=== PATIENT | male | born 1990 | race American Indian/Alaskan Native ===

== ENCOUNTER 2019-04-13 03:08 | Emergency (ER) | payer SELFPAY ==
--- NOTE | 2019-04-13 03:35 | XRay Report ---
CHEST 1 VIEW 04/13/2019 3:27 AM INDICATION / CLINICAL INFORMATION: Chest Pain. COMPARISON: None available. FINDINGS: SUPPORT DEVICES: None. HEART / MEDIASTINUM: No significant abnormality. LUNGS / PLEURA: No significant pulmonary or pleural abnormality. No pneumothorax. ADDITIONAL FINDINGS: No significant additional findings. IMPRESSION: 1. No acute abnormality of the chest. Signer Name: Jaxon Lyman MD Signed: 04/13/2019 3:31 AM Workstation Name: [id number]
--- NOTE | 2019-04-13 08:47 | Event Note ---
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
--- NOTE | 2019-04-13 09:10 | Emergency Department Report ---
<QAMAR FLOR - Last Filed: 04/13/19 12:31> ED Chest Pain HPI - General Chief Complaint: Chest Pain Stated Complaint: CHEST PAIN Time Seen by Provider: 04/13/19 08:47 Source: patient Mode of arrival: Ambulatory Limitations: No Limitations - History of Present Illness Initial Comments: This a 28-year-old obese male with no prior medical history presents to ED complaining of left to me sided chest pain that's been intermittent for the past 1 month. Patient describes pain as sharp to dull that is un related to physical activity or strenuous lifting. Patient states that pain does not radiate anywhere else. Patient states that it's localized mostly to his left upper chest region and sometimes felt in need sternal region. Patient denies taking any medications for any medical conditions. Patient denies fevers/chills/ nausea/vomiting/dizziness/lightheadedness/blurred vision/headache MD Complaint: chest pain - Related Data Home Medications Medication Instructions Recorded Confirmed Last Taken No Known Home Medications [No 04/13/19 04/13/19 Unknown Reported Home Medications] Allergies Allergy/AdvReac Type Severity Reaction Status Date / Time No Known Allergies Allergy Verified 04/13/19 03:11 Heart Score - HEART Score History: Slightly suspicious EKG: Non-specific Age: < 45 Risk factors: No known risk factors Troponin: < normal limit HEART Score: 1 ED Review of Systems Comment: All other systems reviewed and negative ED Past Medical Hx - Past Medical History Previous Medical History?: No - Surgical History Past Surgical History?: No - Social History Smoking Status: Current Every Day Smoker Substance Use Type: Marijuana - Medications Home Medications: Home Medications Medication Instructions Recorded Confirmed Last Taken Type No Known Home Medications [No 04/13/19 04/13/19 Unknown History Reported Home Medications] ED Physical Exam - General Limitations: No Limitations General appearance: alert, in no apparent distress - Head Head exam: Present: atraumatic, normocephalic - Eye Eye exam: Present: normal appearance - ENT ENT exam: Present: mucous membranes moist - Neck Neck exam: Present: normal inspection, full ROM. Absent: tenderness - Respiratory Respiratory exam: Present: normal lung sounds bilaterally. Absent: respiratory distress, wheezes, rales, chest wall tenderness - Cardiovascular Cardiovascular Exam: Present: regular rate, normal rhythm. Absent: systolic murmur, diastolic murmur, rubs, gallop - GI/Abdominal GI/Abdominal exam: Present: soft, normal bowel sounds - Rectal Rectal exam: Present: deferred - Extremities Exam Extremities exam: Present: normal inspection - Back Exam Back exam: Present: normal inspection - Neurological Exam Neurological exam: Present: alert, oriented X3 - Psychiatric Psychiatric exam: Present: normal affect, normal mood - Skin Skin exam: Present: warm, dry, intact, normal color. Absent: rash CLIFFORD score - Clifford Score Age > 65: (0) No Aspirin use within the Past 7 Days: (0) No 3 or more CAD Risk Factors: (0) No 2 or more Angina events in past 24 hrs: (0) No Known CAD with more than 50% Stenosis: (0) No Elevated Cardiac Markers: (0) No ST Deviation Greater than 0.5mm: (0) No CLIFFORD Score: 0 ED Medical Decision Making - Lab Data Result diagrams: 04/13/19 09:21 04/13/19 09:21 Laboratory Last Values WBC 6.4 K/mm3 (4.5-11.0) 04/13/19 09:21 RBC 5.38 M/mm3 (3.65-5.03) H 04/13/19 09:21 Hgb 15.6 gm/dl (11.8-15.2) H 04/13/19 09:21 Hct 45.6 % (35.5-45.6) 04/13/19 09:21 MCV 85 fl (84-94) 04/13/19 09:21 MCH 29 pg (28-32) 04/13/19 09:21 MCHC 34 % (32-34) 04/13/19 09:21 RDW 14.3 % (13.2-15.2) 04/13/19 09:21 Plt Count 288 K/mm3 (140-440) 04/13/19 09:21 Lymph % (Auto) 33.5 % (13.4-35.0) 04/13/19 09:21 Sutton % (Auto) 6.7 % (0.0-7.3) 04/13/19 09:21 Eos % (Auto) 1.2 % (0.0-4.3) 04/13/19 09:21 Baso % (Auto) 0.9 % (0.0-1.8) 12/12/19 09:21 Lymph # 2.1 K/mm3 (1.2-5.4) 04/13/19 09:21 Sutton # 0.4 K/mm3 (0.0-0.8) 04/13/19 09:21 Eos # 0.1 K/mm3 (0.0-0.4) 04/13/19 09:21 Baso # 0.1 K/mm3 (0.0-0.1) 04/13/19 09:21 Seg Neutrophils % 57.7 % (40.0-70.0) 04/13/19 09:21 Seg Neutrophils # 3.7 K/mm3 (1.8-7.7) 04/13/19 09:21 Sodium 136 mmol/L (137-145) L 04/13/19 09:21 Potassium 4.2 mmol/L (3.6-5.0) 04/13/19 09:21 Chloride 100.0 mmol/L (98-107) 04/13/19 09:21 Carbon Dioxide 23 mmol/L (22-30) 04/13/19 09:21 Anion Gap 17 mmol/L 04/13/19 09:21 BUN 13 mg/dL (9-20) 04/13/19 09:21 Creatinine 0.9 mg/dL (0.8-1.5) 04/13/19 09:21 Estimated GFR > 60 ml/min 04/13/19 09:21 BUN/Creatinine Ratio 14 % 04/13/19 09:21 Glucose 104 mg/dL (75-100) H 04/13/19 09:21 Calcium 9.3 mg/dL (8.4-10.2) 04/13/19 09:21 Troponin T < 0.010 ng/mL (0.00-0.029) 04/13/19 10:04 NT-Pro-B Natriuret Pep 30.25 pg/mL (0-450) 04/13/19 10:04 - Radiology Data Radiology results: report reviewed, image reviewed CHEST 1 VIEW 04/13/2019 3:27 AM INDICATION / CLINICAL INFORMATION: Chest Pain. COMPARISON: None available. FINDINGS: SUPPORT DEVICES: None. HEART / MEDIASTINUM: No significant abnormality. LUNGS / PLEURA: No significant pulmonary or pleural abnormality. No pneumothorax. ADDITIONAL FINDINGS: No significant additional findings. IMPRESSION: 1. No acute abnormality of the chest. Signer Name: Jaxon Lyman MD Signed: 04/13/2019 3:31 AM Workstation Name: [id number] Transcribed By: [place] Dictated By: Jaxon Lyman MD Electronically Authenticated By: Jaxon Lyman MD Signed Date/Time: 04/13/19 0331 ED Disposition Clinical Impression: Abnormal EKG Chest pain Qualifiers: Chest pain type: unspecified Qualified Code(s): R07.9 - Chest pain, unspecified Disposition: DC- TO HOME OR SELFCARE Condition: Stable Instructions: Chest Pain (ED), Electrocardiogram (GEN) Referrals: [facility] [Outside] - as needed GIULIANO DOHERTY MD [Staff Physician] - 7 Days PRIMARY CARE, [Primary Care Provider] - 2-3 Days <PRABHU STINSON - Last Filed: 04/13/19 17:56> ED Chest Pain HPI - History of Present Illness Initial Comments: DEnies fam hx sudden cardiac , denies hx PE/DVT Onset: during rest Pain Location: substernal Pain Radiation: none Severity: mild Severity scale (0 -10): 2 Quality: aching Consistency: intermittent Improves With: nothing Worsens With: nothing Context: recent travel (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[place]) re: denies: nausea, vomting, diaphoresis, dyspnea, sense of impending doom Other Symptoms: denies: cough, fever, syncope, rash, acid taste in mouth, leg swelling, palpitations, burping ED Review of Systems ROS: Stated complaint: CHEST PAIN Other details as noted in HPI Other: GENERAL: No weight change, fatigue, fever, chills, or night sweats SKIN: No changes in skin or hair, no itching, no rashes, no jaundice HEAD: No trauma EYES: No blurriness, tearing, itching, acute visual loss, conjunctival discoloration, or scleral icterus EARS: No hearing loss, tinnitus, vertigo, or earache NOSE: No rhinorrhea, stuffiness, sneezing, itching, or epistaxis MOUTH: No bleeding gums, hoarseness, sore throat, or swelling CARDIAC: Chest pain. No new murmur, palpitations, dyspnea on exertion, orthopnea, PND, or edema RESPIRATORY: No shortness of breath, wheeze, cough, sputum production, hemoptysis GI: No abdominal pain, nausea, vomiting, dysphagia, diarrhea, constipation, hematemesis, melena, hematochezia URINARY: No frequency, urgency, polyuria, dysuria, hematuria, or incontinence MUSCULOSKELETAL: No muscle weakness, joint stiffness, decrease in range of motion, redness, swelling NEUROLOGIC: No headache, syncope, loss of sensation, numbness, tingling, tremors, weakness, paralysis, seizures HEMATOLOGIC: No anemia, easy bruising, bleeding, petechiae, or purpura ENDOCRINE: No hot or cold intolerance, sweating, polyuria, polydipsia or, polyphagia no thyroid problems PSYCHIATRIC: No change in mood, no anxiety, no depression ED Physical Exam - Other Other exam information: GENERAL: Patient in no acute distress HEAD: Normocephalic, atraumatic EYES: PERRLA, EOM intact, no scleral icterus, no conjunctival hemorrhage, visual tejada and acuity wnl NOSE: No tenderness, discharge, sinus tenderness MOUTH: No erythema, bleeding, exudate HEART: Regular rate and rhythm, no murmur, S1-S2 are auscultated, no edema, pulses are symmetric LUNGS: No respiratory distress. Bilateral breath sounds, No tachypnea, No re tractions, No wheezing, rales, rhonchi ABDOMEN: Normal bowel sounds, abdomen soft, no tenderness, no rebound, no guarding, no distention, no masses, no CVA tenderness MUSCULOSKELETAL: Normal joint range of motion, no redness, no swelling, no tenderness NEUROLOGIC: GCS 15, Alert and Oriented x3, Cranial nerves intact, normal sensation, normal strength, no cerebellar deficit, NIHSS 0 PSYCHIATRIC: No homicidal or suicidal ideation, no anxiety, no depression, no hallucinations SKIN: Skin is warm and dry, no wounds, no rashes ED Course Vital Signs 04/13/19 04/13/19 04/13/19 03:13 07:16 08:00 Temperature 97.6 F 97.6 F Pulse Rate 83 70 70 Respiratory 20 16 16 Rate Blood Pressure 181/118 Blood Pressure 139/77 128/74 [Right] O2 Sat by Pulse 95 98 96 Oximetry 04/13/19 04/13/19 04/13/19 09:39 09:50 12:41 Temperature 97.8 F 97.5 F L Pulse Rate 80 80 68 Respiratory 16 16 Rate Blood Pressure 126/84 Blood Pressure 126/84 142/89 [Right] O2 Sat by Pulse 100 98 Oximetry ED Medical Decision Making - Lab Data Result diagrams: 04/13/19 09:21 04/13/19 09:21 Laboratory Results - last 24 hr 04/13/19 04/13/19 04/13/19 09:21 09:21 10:04 WBC 6.4 RBC 5.38 H Hgb 15.6 H Hct 45.6 MCV 85 MCH 29 MCHC 34 RDW 14.3 Plt Count 288 Lymph % (Auto) 33.5 Sutton % (Auto) 6.7 Eos % (Auto) 1.2 Baso % (Auto) 0.9 Lymph # 2.1 Sutton # 0.4 Eos # 0.1 Baso # 0.1 Seg Neutrophils % 57.7 Seg Neutrophils # 3.7 Sodium 136 L Potassium 4.2 Chloride 100.0 Carbon Dioxide 23 Anion Gap 17 BUN 13 Creatinine 0.9 Estimated GFR > 60 BUN/Creatinine Ratio 14 Glucose 104 H Calcium 9.3 Troponin T < 0.010 < 0.010 NT-Pro-B Natriuret Pep 30.25 - EKG Data When compared to previous EKG there are: no significant change - Radiology Data Radiology results: report reviewed - Medical Decision Making At [address] and cadiologist Dr. Doherty reviewed EKG in the ER and evaluated the patient. Report on the EKG concern for LVH and early repolarization. Recommend no acute intervention. If second troponin negative, patient can be discharged with outpatient follow up. Patient comfortable. Reports symptom improvement. Updated with results. Plan discharge with outpatient follow up. Return if any worsening. Critical care attestation.: If time is entered above; I have spent that time in minutes in the direct care of this critically ill patient, excluding procedure time. ED Disposition Is pt being admited?: No Time of Disposition: 11:54
[2019-04-13] MEDS ORDERED: cloNIDine 0.2 MG TAB PO ONE (09:16)
[2019-04-13 09:38] LABS: Basophils # (Auto) 0.1 K/mm3 (0.0-0.1); Basophils % (Auto) 0.9 % (0.0-1.8); Eosinophils # (Auto) 0.1 K/mm3 (0.0-0.4); Eosinophils % (Auto) 1.2 % (0.0-4.3); Hematocrit 45.6 % (35.5-45.6); Hemoglobin 15.6 gm/dl (11.8-15.2); Lymphocytes # (Auto) 2.1 K/mm3 (1.2-5.4); Lymphocytes % (Auto) 33.5 % (13.4-35.0); Mean Corpuscular HGB Conc 34 % (32-34); Mean Corpuscular Volume 85 fl (84-94); Monocytes # (Auto) 0.4 K/mm3 (0.0-0.8); Monocytes % (Auto) 6.7 % (0.0-7.3); Platelet Count 288 K/mm3 (140-440); Red Blood Count 5.38 M/mm3 (3.65-5.03); Red Cell Distribution Width 14.3 % (13.2-15.2)
[2019-04-13 09:49] LABS: BUN/Creatinine Ratio 14; Blood Urea Nitrogen 13 mg/dL (9-20); Calcium 9.3 mg/dL (8.4-10.2); Hemolysis Index 1
[2019-04-13] MEDS ORDERED: SODIUM CHLORIDE 0.9% 1000 ML 1,000 ML IV ONE (09:54)
[2019-04-13] MEDS ORDERED: ASPIRIN 81 MG TAB CHEW PO ONE (09:54)
--- NOTE | 2019-04-13 11:37 | Cat Scan Report ---
CTA CHEST WITH CONTRAST INDICATION : Left-sided chest pain for one month. TECHNIQUE: Axial imaging performed through the chest, with contrast bolus timing set to maximize opa cification of the pulmonary arteries. Sagittal and coronal reformatted images. 3-plane MIP reformatte d images were obtained. All CT scans at this location are performed using CT dose reduction for ALAR A by means of automated exposure control. 160 mL of intravenous contrast administered. Initial CTA scan with 100 cc contrast bolus was missed. Exam was repeated with 60 cc. COMPARISON: No relevant comparisons FINDINGS: Bolus: Contrast bolus timing is borderline. PTE: No large central pulmonary embolus is identified. The distal pulmonary arteries are poorly opac ified but no suspicion of pulmonary embolus. If further evaluation is needed, nuclear medicine scan c ould be obtained. Mediastinum: Heart and great vessels appear normal. No pathologic mediastinal adenopathy. Lungs: Lungs are clear. Bones: Degenerative changes in the spine with nothing acute. Upper abdomen: Mild hepatic steatosis. IMPRESSION: Negative for PTE. Clear lungs. Signer Name: Mj Brizuela Jr, MD Signed: 04/13/2019 11:33 AM Workstation Name: [id number]
--- NOTE | 2019-04-13 12:36 | Consultation ---
History of Present Illness Consult date: 04/13/19 Requesting physician: PRABHU STINSON Consult reason: chest pain History of present illness: The pt is a 28-year-old male with a past medical history of morbid obesity and tobacco use. He is previously unknown to our practice. 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 He presented with c/o chest pain for the past 1 month. He describes his chest pain as an intermittent, nonexertional, nonradiating stabbing pain located on the left side of his chest. The pain has no clear aggravating or alleviating factors. Pt denies SOB, palpitations, n/v, diaphoresis, dizziness or syncope. On evaluation, he is chest pain free. He also c/o LUE numbness which is not associated with the chest pain. Following arrival, he was found to be hyperten sive with BP 181/118. He denies any prior diagnosis of HTN. He does have DOT physicals annually. He reports a weight gain of 100lbs over the past several years due to sedentary lifestyle and fast food. Past History Past Medical History: No medical history Social history: smoking. denies: alcohol abuse, prescription drug abuse Medications and Allergies Allergies Allergy/AdvReac Type Severity Reaction Status Date / Time No Known Allergies Allergy Verified 04/13/19 03:11 Home Medications Medication Instructions Recorded Confirmed Last Taken Type No Known Home Medications [No 04/13/19 04/13/19 Unknown History Reported Home Medications] Review of Systems Constitutional: no weight loss, no weight gain, no fever, no chills, no sweats Ears, nose, mouth and throat: no ear pain, no nose pain, no sinus pressure, no sinus pain Cardiovascular: chest pain, no orthopnea, no palpitations, no rapid/irregular heart beat, no edema, no syncope, no lightheadedness, no shortness of breath, no dyspnea on exertion, no leg edema Respiratory: no cough, no shortness of breath, no dyspnea on exertion, no congestion, no wheezing, no pain on inspiration Gastrointestinal: no abdominal pain, no nausea, no vomiting, no diarrhea, no constipation, no change in bowel habits Genitourinary Male: no dysuria, no hematuria, no flank pain, no discharge, no urinary frequency, no urinary hesitancy Musculoskeletal: no neck stiffness, no neck pain, no shooting arm pain, no arm numbness/tingling, no low back pain, no shooting leg pain Integumentary: no rash, no pruritis, no redness, no sores, no wounds Neurological: no head injury Psychiatric: no anxiety Endocrine: no cold intolerance, no heat intolerance Hematologic/Lymphatic: no easy bruising, no easy bleeding Allergic/Immunologic: no urticaria, no wheezing Physical Examination Vital Signs Temp Pulse Resp BP Pulse Ox 97.6 F 83 20 181/118 95 04/13/19 03:13 04/13/19 03:13 04/13/19 03:13 04/13/19 03:13 04/13/19 03:13 General appearance: no acute distress HEENT: Positive: PERRL, Normocephaly, Mucus Membranes Moist Neck: Positive: neck supple, trachea midline Cardiac: Positive: Reg Rate and Rhythm, S1/S2 Lungs: Positive: Decreased Breath Sounds Neuro: Positive: Grossly Intact Abdomen: Negative: Tender Skin: Negative: Rash Musculoskeletal: No Pain Extremities: Absent: edema Results 04/13/19 09:21 04/13/19 09:21 CBC 04/13/19 Range/Units 09:21 WBC 6.4 (4.5-11.0) K/mm3 RBC 5.38 H (3.65-5.03) M/mm3 Hgb 15.6 H (11.8-15.2) gm/dl Hct 45.6 (35.5-45.6) % Plt Count 288 (140-440) K/mm3 Lymph # 2.1 (1.2-5.4) K/mm3 Ponce # 0.4 (0.0-0.8) K/mm3 Eos # 0.1 (0.0-0.4) K/mm3 Baso # 0.1 (0.0-0.1) K/mm3 Comprehensive Metabolic Panel 04/13/19 Range/Units 09:21 Sodium 136 L (137-145) mmol/L Potassium 4.2 (3.6-5.0) mmol/L Chloride 100.0 (98-107) mmol/L Carbon Dioxide 23 (22-30) mmol/L BUN 13 (9-20) mg/dL Creatinine 0.9 (0.8-1.5) mg/dL Glucose 104 H (75-100) mg/dL Calcium 9.3 (8.4-10.2) mg/dL - Imaging and Cardiology EKG: report reviewed, image reviewed EKG interpretations - Telemetry EKG Rhythm: Sinus Rhythm - EKG Sinus rhythms and dysrhythmias: sinus rhythm Chamber hypertrophy or enlargement: left ventricular hypertro Assessment and Plan Pt's chest pain appears atypical, suspect secondary to uncontrolled HTN, chest pain currently resolved. Chest CTA negative for PE, NAF. ECG shows NSR, LVH with repolarization abnormalities, no AMI. Maggie negative for AMI x 1 set. Obtain second set of Maggie and if negative, pt may discharge home from cardiology standpoint. Smoking cessation encouraged. Pt verbalizes understanding. Recommend follow up in our office with Dr. Doherty within 1-2 weeks ([phone]). The patient has been seen in conjunction with Dr. Doherty who agrees with the assessment and plan of care. - Patient Problems (1) Atypical chest pain Current Visit: Yes Status: Acute (2) HTN (hypertension) Current Visit: Yes Status: Chronic (3) Morbid obesity Current Visit: Yes Status: Chronic (4) Tobacco use Current Visit: Yes Status: Chronic
[2019-04-13 12:41] VITALS: BP 142/89
== END 2019-04-13 12:41 | disposition home or self-care (01) ==
LOC: ED 03:08
DX: R07.89 Other chest pain (principal); R94.31 Abnormal electrocardiogram [ECG] [EKG]; I10 Essential (primary) hypertension; F17.200 Nicotine dependence, unspecified, uncomplicated; F12.10 Cannabis abuse, uncomplicated; E66.01 Morbid (severe) obesity due to excess calories; Z68.43 Body mass index [BMI] 50.0-59.9, adult
CPT/HCPCS: 36415; 71045; 71275; 80048; 83880; 84484; 85025; 93005; 93010; 99285; J7030; Q9967

== ENCOUNTER 2020-07-02 10:33 | Emergency (ER) | payer SELFPAY | END 2020-07-02 11:09 | LOC: ED 10:33 | DX: R07.9 Chest pain, unspecified (principal); Z53.21 Procedure and treatment not carried out due to patient leaving prior to being seen by health care provider ==